=== PATIENT | female | born 1995 ===

== ENCOUNTER 2018-08-12 07:06 | Emergency (ER) | payer OTHER ==
[~2018-08-12] VITALS: Ht 165.1 cm; Wt 56.7 kg
[~2018-08-12 07:06] MED LIST: ZANTAC150 MG PO
== END 2018-08-12 12:32 | disposition home or self-care (01) ==
LOC: ER 07:06
DX: N83.292 Other ovarian cyst, left side (principal); R10.2 Pelvic and perineal pain

== ENCOUNTER 2019-12-27 18:32 | Emergency (ER) | payer OTHER ==
[~2019-12-27] VITALS: Ht 167.6 cm; Wt 56.7 kg
[2019-12-27] MEDS ORDERED: DICLOFENAC SODI75 MG PO (19:50)
== END 2019-12-27 20:13 | disposition home or self-care (01) ==
LOC: ER 18:32
DX: S50.01XA Contusion of right elbow, initial encounter (principal); M12.521 Traumatic arthropathy, right elbow; V00.131A Fall from skateboard, initial encounter; Y93.51 Activity, roller skating (inline) and skateboarding; Y92.488 Other paved roadways as the place of occurrence of the external cause; Y99.8 Other external cause status